=== PATIENT | female | born 2000 | race Two or more races ===

== ENCOUNTER → 2025-06-02 | Outpatient (CLI) | payer OTHER ==
[~2025-06-02] MED LIST: GADOTERATE MEGLUMINE 5 MMOL/10 ML VIAL IV ONE
[2025-06-02 10:45] LABS: CREATININE 0.9 mg/dL (0.6-1.0); UREA NITROGEN BLOOD 9 mg/dL (9-23)
== END | disposition home or self-care (01) ==
LOC: RAD 09:36
PROVIDERS: ATTEND Radiology Diagnostic Radiology
DX: N83.12 Corpus luteum cyst of left ovary (principal); N85.4 Malposition of uterus; R10.20 Pelvic and perineal pain unspecified side; Z97.5 Presence of (intrauterine) contraceptive device
CPT/HCPCS: 72197; 82565; 84520; 36415; A9577